=== PATIENT | female | born 1990 | race Caucasian/White ===

== ENCOUNTER 2019-09-03 23:08 | Emergency (ER) | payer OTHER ==
--- NOTE | 2019-09-03 23:21 | ED Physician Documentation ---
Headache - HISTORIAN Historian: patient - HPI Chief Complaint: Headache Additional Information: 29 year old female presents to the ER from [facility] with c/o "migraine". She states that she was diagnosed several years ago and it feels the same; focused behind the left eye; started after dinner and probably caused from stress. She states that her doctor would normally give her a shot of Toradol and that would help; he then put her on imitrex which helps only half of the time. She c/o nausea but states she is allergic to Zofran "blistered at the IV site". Onset: hours Timing: gradual, still present New Gradual Onset: No Exposure To: none Severity: moderate Quality: similar to previous, throbbing Associated Symptoms: sensitivity to light, nausea. denies: fever, chills, problems with vision Preceding Symptoms: denies: visual disturbance Exacerbated By: light, noise - ROS NEURO/PSYCH: denies: anxiety, depression EYES/ENT: denies: sinus pain CVS/RESP: none GI/: denies: diarrhea MS/SKIN/LYMPH: denies: muscle aches - PAST HX Medical History: migraines Immunizations: UTD Allergies/Adverse Reactions: Allergies Allergy/AdvReac Type Severity Reaction Status Date / Time codeine Allergy Verified 09/03/19 23:24 ondansetron [From Zofran] Allergy Verified 09/03/19 23:24 - SOCIAL HX Smoking History: greater than 1 pack/day Alcohol Use: occasionally Drug Use: methamphetamines - Family HX Family History: none - VITAL SIGNS Vital Signs: Vital Signs Temp Pulse Resp BP Pulse Ox 96.6 F L 85 18 121/81 99 09/03/19 23:15 09/03/19 23:15 09/03/19 23:15 09/03/19 23:15 09/03/19 23:15 - REVIEWED ASSESSMENTS Nursing Assessment Reviewed: Yes Vitals Reviewed: Yes ED Results Lab/Radiology - Orders Orders: ED Orders Category Date Time Status Ketorolac Tromethamine [Toradol] Med 09/03/19 23:18 Discontinued 60 mg IM NOW ONE Promethazine HCl [Phenergan] Med 09/03/19 23:19 Discontinued 25 mg IM NOW ONE Headache Physical Exam - EXAM General Appearance: alert, mild distress EENT: eyes nml inspection, PERRL Neck: normal inspection Respiratory: breath sounds normal CVS: heart sounds nml Abdomen: nml bowel sounds Skin: color nml Extremitites: normal range of motion - NEURO/PSYCH Higher Functions: alert, oriented x3, nml speech, mood/affect nml Cranial: nml as tested Sensorimotor: motor nml, sensation nml Discharge Clincal Impression: Migraine Referrals: Primary Doctor,No [Primary Care Provider] - 2 Days Additional Instructions: Home and rest Sit in dark room Take Tylenol and Ibuprofen as needed for headache Follow up with PCP as needed Condition: Good Disposition: 01 HOME, SELF-CARE Decision to Admit: NO Decision Time: 23:22
[2019-09-03] MEDS: PROMETHAZINE HCL 25 MG/ML VIAL IM ONE (23:35)
[2019-09-03] MEDS: KETOROLAC TROMETHAMINE 60 MG/2 ML VIAL IM ONE (23:35)
[2019-09-03 23:38] VITALS: BP 106/58
== END 2019-09-03 23:37 | disposition home or self-care (01) ==
LOC: ED 23:08
DX: G43.009 Migraine without aura, not intractable, without status migrainosus (principal)
CPT/HCPCS: 99282; 99284; J1885; J2550

== ENCOUNTER 2019-09-16 02:29 | Emergency (ER) | payer OTHER ==
[2019-09-16] MEDS: KETOROLAC TROMETHAMINE 60 MG/2 ML VIAL IM ONE (02:42)
--- NOTE | 2019-09-16 02:44 | ED Physician Documentation ---
Headache - HISTORIAN Historian: patient - HPI Stated Complaint: headache Chief Complaint: Headache Additional Information: 29 year old female presents from [place] with c/o "migraine" that started around 20:00- she took Excedrin. She states that [facility] because [facility] was a 3 hour wait. States that she finished rehab at [facility]- hx of meth use. Usually take Toradol which helps her headache. Discussed finding PCP and establishing care. Onset: hours Timing: gradual, still present New Gradual Onset: No Exposure To: none Severity: moderate Quality: similar to previous, throbbing Associated Symptoms: sensitivity to light. denies: problems with vision, nausea, vomiting Preceding Symptoms: denies: visual disturbance Exacerbated By: light - ROS NEURO/PSYCH: denies: confusion, anxiety EYES/ENT: denies: sore throat CVS/RESP: none GI/: denies: abdominal pain MS/SKIN/LYMPH: denies: muscle aches - PAST HX Medical History: migraines Immunizations: UTD Allergies/Adverse Reactions: Allergies Allergy/AdvReac Type Severity Reaction Status Date / Time codeine Allergy Verified 09/16/19 02:41 ondansetron [From Zofran] Allergy Verified 09/16/19 02:41 Home Medications: Ambulatory Orders Medication Instructions Recorded Omeprazole 40 mg PO DAILY 09/03/19 SUMAtriptan SUCCINATE [Imitrex] 25 mg PO DAILY PRN #8 tablet 09/16/19 - SOCIAL HX Smoking History: greater than 1 pack/day Alcohol Use: sober Drug Use: methamphetamines - Family HX Family History: none - VITAL SIGNS Vital Signs: Vital Signs Temp Pulse Resp BP Pulse Ox 97.3 F L 94 H 18 122/81 99 09/16/19 02:38 09/16/19 02:38 09/16/19 02:38 09/16/19 02:38 09/16/19 02:38 - REVIEWED ASSESSMENTS Nursing Assessment Reviewed: Yes Vitals Reviewed: Yes ED Results Lab/Radiology - Orders Orders: ED Orders Category Date Time Status Ketorolac Tromethamine [Toradol] Med 09/16/19 02:40 Discontinued 60 mg IM NOW ONE Headache Physical Exam - EXAM General Appearance: alert, mild distress EENT: eyes nml inspection, PERRL Neck: normal inspection Respiratory: breath sounds normal CVS: heart sounds nml Skin: color nml, no rash Extremitites: normal range of motion - NEURO/PSYCH Higher Functions: alert, oriented x3, nml speech, mood/affect nml Sensorimotor: motor nml, sensation nml Discharge Clincal Impression: Migraine Prescriptions: SUMAtriptan SUCCINATE [Imitrex] 25 mg PO DAILY PRN #8 tablet PRN Reason: Headache Referrals: Primary Doctor,No [Primary Care Provider] - 2 Days Additional Instructions: Establish care with PCP and follow up on headaches Condition: Good Disposition: 01 HOME, SELF-CARE Decision to Admit: NO Decision Time: 02:48
== END 2019-09-16 02:44 | disposition home or self-care (01) ==
LOC: ED 02:29
DX: G43.909 Migraine, unspecified, not intractable, without status migrainosus (principal)
CPT/HCPCS: 96372; 99284; J1885